=== PATIENT | male | born 1995 ===

== ENCOUNTER 2022-03-03 14:44 | Emergency (ER) | payer BC, SELFPAY | END 2022-03-03 16:05 | disposition home or self-care (01) | LOC: ERS 14:44 | DX: K04.7 Periapical abscess without sinus (principal) | CPT/HCPCS: 99282 ==

== ENCOUNTER 2022-05-09 20:39 | Emergency (ER) | payer SELFPAY | END 2022-05-10 00:20 | disposition home or self-care (01) | LOC: ERS 20:39 | DX: K04.7 Periapical abscess without sinus (principal); F17.210 Nicotine dependence, cigarettes, uncomplicated | CPT/HCPCS: 99282 ==